=== PATIENT | male | born 1960 | race Caucasian/White ===

== ENCOUNTER 2017-10-17 12:59 | Emergency (ER) | payer OTHER ==
[~2017-10-17] VITALS: Ht 172.7 cm; Wt 125.6 kg
[2017-10-17 13:13] VITALS: BP 129/59
--- NOTE | 2017-10-17 13:47 | RAD ---
INDICATION: L SHOULDER PAIN COMPARISON: None. IMPRESSION: Left shoulder: 3 views obtained. No definite acute fracture or dislocation. Mild hypertrophic changes at the acromioclavicular joint with inferior acromial spur. This could predispose the patient to rotator cuff disease. There is also some degenerative changes seen at glenohumeral joint. Subcentimeter lucent focus at the distal clavicle. Could be related to degenerative changes with subchondral cyst formation but nonspecific appearance on plain film.
--- NOTE | 2017-10-17 13:52 | PHYS DOC ---
Past History Past Medical History: High Cholesterol, Hypertension Past Surgical History: Appendectomy Alcohol Use: Occasionally Drug Use: None Adult General Chief Complaint Chief Complaint: SHOUDLER HPI HPI Patient is a 57-year-old male presenting to the emergency department for evaluation of left shoulder pain status post injury 5 days ago. He says that he was lifting a filing cabinet and felt a severe pain in his left shoulder and has persisted and he has been unable to internally or extremity wrote a significant pain. There has been no weakness numbness or tingling and he is in no obvious distress with normal vital signs. Review of Systems Review of Systems Constitutional: Denies fever or chills [] Musculoskeletal: Positive left shoulder joint pain [] Neurologic: Denies headache, focal weakness or sensory changes [] All other systems were reviewed and found to be within normal limits, except as documented in this note. Allergies Allergies Allergies Coded Allergies Type Severity Reaction Last Updated Verified No Known Drug Allergies 10/17/17 No Physical Exam Physical Exam Constitutional: Well developed, well nourished, no acute distress, non-toxic appearance. [] Extremities: Pain at the before meals joint and anterior left shoulder with decreased range of motion and internal/external rotation due to pain. Distally he is neurovascularly intact. Neurologic: Alert and oriented X 3, normal motor function, normal sensory function, no focal deficits noted. [] Current Patient Data Vital Signs Vital Signs Date Time Temp Pulse Resp B/P (MAP) Pulse Ox O2 Delivery O2 Flow Rate FiO2 10/17/17 13:13 98.3 72 22 95 Room Air EKG EKG [] Radiology/Procedures Radiology/Procedures INDICATION: L SHOULDER PAIN COMPARISON: None. IMPRESSION: Left shoulder: 3 views obtained. No definite acute fracture or dislocation. Mild hypertrophic changes at the acromioclavicular joint with inferior acromial spur. This could predispose the patient to rotator cuff disease. There is also some degenerative changes seen at glenohumeral joint. Subcentimeter lucent focus at the distal clavicle. Could be related to degenerative changes with subchondral cyst formation but nonspecific appearance on plain film. DICTATED AND SIGNED BY: RUBA CADET MD DATE: 10/17/17 3438 Course & Med Decision Making Course & Med Decision Making Patient likely suffered a rotator cuff injury. We'll recommend NSAIDs [place] for breakthrough pain sling and orthopedic follow-up. Patient aware and agreeable with plan. Dragon Disclaimer Dragon Disclaimer This electronic medical record was generated, in whole or in part, using a voice recognition dictation system. Departure Departure: Impression: Primary Impression: Shoulder sprain Disposition: 01 HOME, SELF-CARE Condition: STABLE Referrals: NICK KERNS APRN (PCP) Patient Instructions: Rotator Cuff Injury Additional Instructions: TAKE 400MG OF IBUPROFEN EVERY 6 HOURS AND THE NORCO FOR BREAKTHROUGH PAIN. Scripts Hydrocodone Bit/Acetaminophen (NORCO 5-325 TABLET) 1 Each Tablet 1 TAB PO PRN Q6HRS Y for PAIN, #14 TAB 0 Refills Prov: AUBREY AGUILAR DO 10/17/17 Problem Qualifiers Primary Impression: Shoulder sprain Encounter type: initial encounter Shoulder sprain type: unspecified sprain Laterality: left Qualified Codes: S43.402A - Unspecified sprain of left shoulder joint, initial encounter AUBREY AGUILAR DO Oct 17, 2017 13:52
[2017-10-17] MEDS ORDERED: HYDR-971 PO (14:16)
== END 2017-10-17 16:00 | disposition home or self-care (01) ==
LOC: ER 12:59
DX: S43.402A Unspecified sprain of left shoulder joint, initial encounter (principal); I10 Essential (primary) hypertension; E78.00 Pure hypercholesterolemia, unspecified; X58.XXXA Exposure to other specified factors, initial encounter; Y93.89 Activity, other specified; Y99.8 Other external cause status; Y92.89 Other specified places as the place of occurrence of the external cause
CPT/HCPCS: 73030; 99284

== ENCOUNTER → 2018-01-24 | Outpatient (CLI) | payer BC ==
[~2018-01-24] MED LIST: HYDR-971 PO; IOHEXOL 240 MG/ML 50ML VIAL. ONE
[2018-01-24] MEDS: IOHEXOL 300 MG/ML 75 ML VIAL. IV ONE (12:36)
--- NOTE | 2018-01-24 12:59 | RAD ---
CT Abdomen and Pelvis With Intravenous Contrast: History: Epigastric pain. Comparison: . Technique: After administration of oral and intravenous contrast, 75 mL Omnipaque-300, CT of the abdomen and pelvis was performed. Exposure: One or more of the following individualized dose reduction techniques were utilized for this examination: 1. Automated exposure control 2. Adjustment of the mA and/or kV according to patient size 3. Use of iterative reconstruction technique Findings: Fatty liver disease is seen. Capsular calcifications are seen involving the lateral aspect of the spleen. Spleen is otherwise unremarkable. Pancreas is unremarkable as is the gallbladder. Bilateral adrenal glands are unremarkable. Both kidneys demonstrate cysts. No bowel obstruction or inflammation is identified. There may have been previous appendectomy. Urinary bladder is unremarkable. No free air or free fluid is seen in the abdomen or pelvis. Scattered colonic diverticulosis is noted, but no diverticulitis noted. Small fat-containing umbilical hernia is seen, similar to previous study. Impression: 1. No acute abnormality identified. Electronically signed by: Lucio Charles MD (01/24/2018 12:56 PM) [facility]
== END | disposition home or self-care (01) ==
LOC: CT 11:00
PROVIDERS: ATTEND Nurse Practitioner Family
DX: K76.0 Fatty (change of) liver, not elsewhere classified (principal); K42.9 Umbilical hernia without obstruction or gangrene; K57.30 Diverticulosis of large intestine without perforation or abscess without bleeding; I10 Essential (primary) hypertension
CPT/HCPCS: 74177; Q9966; Q9967

== ENCOUNTER → 2018-01-24 | Outpatient (CLI) | payer BC ==
[~2018-01-24] MED LIST changes: -IOHEXOL 240 MG/ML 50ML VIAL. ONE
--- NOTE | 2018-01-24 10:37 | RAD ---
Complete abdominal ultrasound 01/24/2018 Indication: Abdominal pain. Epigastric pain. Comparison study: None Discussion: Ultrasound evaluation of the abdomen was performed. Static images are submitted to PACS. Exam is limited by patient body habitus and loops of gas-filled bowel overlying the solid viscera of the abdomen. Visualized portions of the pancreas are grossly unremarkable. Visualized portions of the aorta are unremarkable. The IVC is poorly visualized. Gallbladder demonstrates no evidence of stones, sludge, or wall thickening. No pericholecystic fluid is identified. Portal vein is patent with flow in normal direction. Common bile duct appears be nondilated with diameter approximately 4 mm. The liver is poorly visualized. Increased hepatic echogenicity noted consistent with hepatic steatosis. No focal hepatic lesions are seen on provided imaging the portions of the liver obscured. Right kidney measures approximately 11.2 cm in length. Small exophytic cyst measuring 1.8 cm is seen in the inferior pole the right kidney. The left kidney measures 12.7 cm in length. A 2.8 cm parapelvic cyst is seen in the superior pole. A smaller exophytic cyst is also seen in the superior pole measuring 1.6 cm. The spleen is normal in size measuring 10 cm longitudinally. Impression: 1. No sonographic evidence of acute intra-abdominal abnormality 2. Hepatic steatosis 3. Bilateral renal cysts
== END | disposition home or self-care (01) ==
LOC: US 09:27
PROVIDERS: ATTEND Nurse Practitioner Family
DX: K76.0 Fatty (change of) liver, not elsewhere classified (principal); N28.1 Cyst of kidney, acquired
CPT/HCPCS: 76700

== ENCOUNTER → 2018-01-29 | Outpatient (CLI) | payer BC ==
--- NOTE | 2018-01-29 13:15 | RAD ---
Hepatobiliary scan 01/29/2018 Indication: Right upper quadrant pain x3 weeks. Comparison study: None. Discussion: Imaging over the abdomen was performed following the administration of 5.5 mCi of technetium 99m labeled Choletec. Following visualization of the gallbladder a fat-containing nutritional supplement was administered orally. Imaging over the abdomen was continued. Normal uptake and excretion of radiotracer by the liver into the biliary tree and bowel is seen. Gallbladder is first visualized within 5 minutes. Following filling of the gallbladder and administration of Boost, gallbladder ejection fraction measures 93% which is within normal limits. Impression: No scintigraphic evidence of cholecystitis. Normal gallbladder ejection fraction.
== END | disposition home or self-care (01) ==
LOC: NM 09:09
PROVIDERS: ATTEND Surgery
DX: R10.11 Right upper quadrant pain (principal); I10 Essential (primary) hypertension; E78.00 Pure hypercholesterolemia, unspecified; N28.1 Cyst of kidney, acquired
CPT/HCPCS: 78226; 96374; 96375; A9537

== ENCOUNTER → 2018-02-01 | Outpatient (CLI) | payer BC ==
--- NOTE | 2018-02-01 13:43 | RAD ---
Indication: Hypothyroid. Fatigue. Abnormal blood work. Technique: Thyroid ultrasound was performed. No comparison is available. Findings: Thyroid is heterogeneous in echotexture, with a diffuse nodular appearance. No normal thyroid tissue is apparent. Surface is lobulated. Color flow to the thyroid is diffusely decreased. Right thyroid lobe measures 3.2 x 1.4 x 1.3 cm and the left 3.9 x 1.7 x 1.9 cm. The isthmus measures 0.3 cm. Impression: 1. Heterogeneous thyroid with decreased color flow can be a finding of hypothyroidism. 2. The entirety of the thyroid is nodular with lobular contour. Dominant nodule is not identified.
== END | disposition home or self-care (01) ==
LOC: US 09:40
PROVIDERS: ATTEND Nurse Practitioner Family
DX: E03.9 Hypothyroidism, unspecified (principal)
CPT/HCPCS: 76536

== ENCOUNTER → 2019-03-22 | Outpatient (CLI) | payer BC, OTHER ==
[~2019-03-22] MED LIST changes: +HYDR-3165 PO; -HYDR-971 PO
--- NOTE | 2019-03-22 12:03 | RAD ---
EXAM: RIGHT LOWER EXTREMITY ARTERIAL DOPPLER SONOGRAM WITH ANKLE-BRACHIAL INDICES (JIM). HISTORY: Right lower extremity claudication. Hypertension, diabetes. TECHNIQUE: Grayscale and Doppler sonographic evaluation of the right lower extremity was performed and pressure readings were assessed. FINDINGS: There are triphasic waveforms throughout the right lower extremity. There are no focally elevated velocities. The dorsalis pedis and posterior tibial arteries are patent. Right brachial pressure: 117 mmHg Left brachial pressure: 117 mmHg Right ankle pressure: 145 mmHg Right ankle JIM: 1.2 Left ankle pressure: 140 mmHg Left ankle JIM: 1.2 IMPRESSION: 1. No evidence of hemodynamically significant right lower extremity arterial stenosis. 2. Normal bilateral ankle-brachial indices. Electronically signed by: Noel Davies MD (03/22/2019 12:00 PM) [facility]
== END | disposition home or self-care (01) ==
LOC: US 07:34
PROVIDERS: ATTEND Orthopaedic Surgery
DX: M79.661 Pain in right lower leg (principal); I10 Essential (primary) hypertension; E11.9 Type 2 diabetes mellitus without complications
CPT/HCPCS: 93922; 93926

== ENCOUNTER → 2020-06-12 | Outpatient (CLI) | payer OTHER ==
--- NOTE | 2020-06-12 08:53 | RAD ---
EXAM: 2 views of the right elbow DATE: 06/12/2020 12:00 AM INDICATION: Reason: TEAR OF RIGHT BICEP MUSCLE, BRUISING / Spl. Instructions: / History: COMPARISON: No Prior FINDINGS: No elbow joint effusion. No acute fracture or dislocation. Lateral epicondylar an olecranon enthesophyte. Dorsal forearm soft tissue swelling. Mild soft tissue fullness and thickening anterior to the elbow joint. IMPRESSION: No acute fracture or dislocation. Dorsal forearm and anterior elbow joint soft tissue swelling. If there is clinical concern for biceps injury, elbow MRI would provide additional details. Electronically signed by: Bar Seymour MD (06/12/2020 8:50 AM) [id number]
== END | disposition home or self-care (01) ==
LOC: DXRAD 07:55
PROVIDERS: ATTEND Physician Assistant
DX: S46.211A Strain of muscle, fascia and tendon of other parts of biceps, right arm, initial encounter (principal); M79.89 Other specified soft tissue disorders; X58.XXXA Exposure to other specified factors, initial encounter; Y93.89 Activity, other specified; Y92.89 Other specified places as the place of occurrence of the external cause; Y99.8 Other external cause status
CPT/HCPCS: 73070

== ENCOUNTER → 2020-07-07 | Outpatient (CLI) | payer OTHER ==
--- NOTE | 2020-07-07 11:12 | RAD ---
Right upper extremity venous doppler ultrasound History: Right upper extremity pain and numbness, status post tendon repair Comparison: None Findings: Multiple grayscale, color, and duplex spectral analysis sonographic images were acquired of the right upper extremity veins to evaluate for the presence of DVT. Interrogated right upper extremity veins are patent with normal phasicity and color-flow, no thrombus demonstrated. However the proximal cranial vein is poorly visualized due to overlying bandage material. Impression: 1. Visualized right upper extremity veins are patent, no thrombus demonstrated. Electronically signed by: Franki Rosado MD (07/07/2020 11:08 AM) [id number]
== END | disposition home or self-care (01) ==
LOC: US 10:24
PROVIDERS: ATTEND Physician Assistant
DX: I82.621 Acute embolism and thrombosis of deep veins of right upper extremity (principal); R20.0 Anesthesia of skin
CPT/HCPCS: 93971